=== PATIENT | male | born 1990 | race Hispanic/Latino ===

== ENCOUNTER 2016-10-23 20:42 | Inpatient (IN) | payer SELFPAY ==
[~2016-10-23] VITALS: Ht 165.1 cm; Wt 67.1 kg
[~2016-10-23 20:42] MED LIST: TYLENOL REGULA325 MG PO
[2016-10-23 23:16] LABS: MCH 26.1 PG (29.0-34.0); MEAN PLAT.VOLUME 8.9 uM^3 (9.0-12.4); PLATELET COUNT 445 K/uL (156-360); RBC DIS.WIDTH-CV 14.5 % (11.8-14.6); RBC DIS.WIDTH-SD 41.4 % (39-53); RED BLOOD COUNT 5.82 M/uL (4.00-5.50); WHITE BLOOD COUNT 18.4 K/uL (4.1-10.2)
[2016-10-23 23:26] LABS: CHLORIDE 107 mEq/L (99-109); POTASSIUM 3.6 mEq/L (3.7-5.4); SODIUM 142 mEq/L (136-147)
[2016-10-23 23:28] LABS: GLUCOSE 101 mg/dL (70-99)
[2016-10-23 23:29] LABS: ANION GAP 14 MEQ/L (2-14)
[2016-10-23 23:31] LABS: SERUM ETHYL ALCOHOL 117 mg/dL
[2016-10-23 23:32] LABS: GFR ESTIMATE (CALCULATED) > 59 mL/min/
[2016-10-23 23:33] LABS: UREA NITROGEN (BUN) 7 mg/dL (9-23)
[2016-10-24 01:51] LABS: MAGNESIUM 2.1 mg/dL (1.3-2.7)
[2016-10-24 01:55] LABS: TOTAL BILIRUBIN 0.2 mg/dL (0.0-1.0)
[2016-10-24 01:56] LABS: ALKALINE PHOSPHATASE 92 IU/L (3-129)
[2016-10-24 01:58] LABS: DIRECT BILIRUBIN 0.1 mg/dL (0.0-0.3)
[2016-10-24 02:05] LABS: CREATINE KINASE 153 IU/L (1-294)
[2016-10-24 04:39] VITALS: BP 146/71
[2016-10-24 06:34] LABS: ADD MIUA? NO; BILIRUBIN NEGATIVE; BLOOD NEGATIVE; COLOR YELLOW ((YELLOW)); GLUCOSE (STRIP) NEGATIVE; KETONES NEGATIVE; LEUKOCYTES NEGATIVE; NITRITE NEGATIVE; PROTEIN (STRIP) NEGATIVE; UCUL ADDED? NO; UROBILINOGEN 0.2 MG/DL (0.2-1.0)
[2016-10-24 07:51] LABS: INTERNAL CONTROL VALID? YES
[2016-10-24 08:10] VITALS: BP 141/71
[2016-10-24 08:30] LABS: EOSINOPHIL (%) 0.7 % (0-5); EOSINOPHIL COUNT 0.1 K/uL (0-0.3); HEMATOCRIT 42.3 % (38.0-50.0); IMMATURE GRANULOCYTE (%) 0.3 % (0.0-0.7); INSTRUMENT ABS NEUTROPHIL CT 9.6 K/uL; LYMPHOCYTE COUNT 1.9 K/uL (1.0-2.8); MCH 26.7 PG (29.0-34.0); MCHC 33.3 G/DL (30.0-36.0); MEAN PLAT.VOLUME 9.1 uM^3 (9.0-12.4); MONOCYTE (%) 7.2 % (3-12); MONOCYTE COUNT 0.9 K/uL (0-0.8); NEUTROPHIL (%) 76.6 % (45-76); NEUTROPHIL COUNT 9.6 K/uL (1.8-6.4); PLATELET COUNT 391 K/uL (156-360); RBC DIS.WIDTH-CV 14.6 % (11.8-14.6); RBC DIS.WIDTH-SD 42.5 % (39-53); RED BLOOD COUNT 5.29 M/uL (4.00-5.50); WHITE BLOOD COUNT 12.6 K/uL (4.1-10.2)
[2016-10-24 08:51] LABS: ANION GAP 8 MEQ/L (2-14); CHLORIDE 107 MEQ/L (99-109); GFR ESTIMATE (CALCULATED) > 59 mL/min/; GLUCOSE 97 mg/dL (70-99); POTASSIUM 4.1 MEQ/L (3.7-5.4); SAMPLE HEMOLYSIS CHECK 0; SAMPLE ICTERIC CHECK 0; SAMPLE LIPEMIA CHECK 0; SODIUM 139 MEQ/L (136-147); UREA NITROGEN (BUN) 5 mg/dL (9-23)
[2016-10-24 12:00] VITALS: BP 135/73
[2016-10-24 16:12] VITALS: BP 139/79
[2016-10-25 00:43] VITALS: BP 130/80
[2016-10-25 07:49] VITALS: BP 134/82
[2016-10-25 16:08] VITALS: BP 132/80
[2016-10-26] VITALS: BP 126/78
[2016-10-26 00:37] LABS: QGTB-NIL 0.09 IU/mL (()); TB AG-NIL 6.34 IU/mL (())
[2016-10-26 07:59] VITALS: BP 140/62
[2016-10-26 15:37] VITALS: BP 126/68
[2016-10-27 05:57] LABS: PROTHROMBIN TIME 10.3 (9.2-11.2); PTT 28.9 (25-32)
[2016-10-27 08:37] VITALS: BP 122/86
[2016-10-27 18:41] VITALS: BP 120/60
[2016-10-27 19:50] VITALS: BP 123/62
[2016-10-27 23:45] VITALS: BP 141/77
[2016-10-28 09:46] VITALS: BP 121/64
[2016-10-28 13:03] VITALS: BP 109/70
[2016-10-28 16:00] VITALS: BP 120/69
[2016-10-28 19:02] VITALS: BP 110/74
[2016-10-29 07:30] VITALS: BP 131/64
[2016-10-30 00:01] VITALS: BP 121/70
[2016-10-30 07:49] VITALS: BP 110/60
[2016-10-30 15:25] VITALS: BP 120/60
[2016-10-31 00:10] VITALS: BP 130/90
[2016-10-31 08:09] VITALS: BP 135/84
[2016-10-31 14:38] LABS: HEMATOCRIT 45.6 % (38.0-50.0); MCH 26.2 PG (29.0-34.0); MCHC 32.9 G/DL (30.0-36.0); MCV 79.7 FL (86-99); MEAN PLAT.VOLUME 9.3 uM^3 (9.0-12.4); PLATELET COUNT 411 K/uL (156-360); RBC DIS.WIDTH-CV 13.9 % (11.8-14.6); RBC DIS.WIDTH-SD 40.3 % (39-53); RED BLOOD COUNT 5.72 M/uL (4.00-5.50); WHITE BLOOD COUNT 7.9 K/uL (4.1-10.2)
[2016-10-31 14:59] LABS: ANION GAP 10 MEQ/L (2-14); CHLORIDE 102 MEQ/L (99-109); POTASSIUM 3.8 MEQ/L (3.7-5.4); SAMPLE HEMOLYSIS CHECK 0; SAMPLE ICTERIC CHECK 0; SAMPLE LIPEMIA CHECK 0; SODIUM 137 MEQ/L (136-147)
[2016-10-31 15:04] LABS: GFR ESTIMATE (CALCULATED) > 59 mL/min/; GLUCOSE 135 mg/dL (70-99); UREA NITROGEN (BUN) 11 mg/dL (9-23)
[2016-10-31 15:05] VITALS: BP 142/86
[2016-10-31 16:51] LABS: HIV INDEX 0.11; HIV-1/2 AB/AG COMBO Nonreactive
[2016-11-01] VITALS: BP 118/70
[2016-11-01 07:51] VITALS: BP 118/70
[2016-11-01 15:14] VITALS: BP 110/74
[2016-11-01 23:55] VITALS: BP 110/54
[2016-11-02 08:04] VITALS: BP 120/78
[2016-11-02 15:49] VITALS: BP 140/84
[2016-11-02 23:48] VITALS: BP 110/74
[2016-11-03 07:39] VITALS: BP 133/69
[2016-11-03 14:17] VITALS: BP 124/64
[2016-11-03 23:36] VITALS: BP 122/71
[2016-11-04 07:49] VITALS: BP 127/78
[2016-11-04 08:11] LABS: HEMATOCRIT 46.8 % (38.0-50.0); MCH 26.1 PG (29.0-34.0); MCHC 32.9 G/DL (30.0-36.0); MCV 79.5 FL (86-99); MEAN PLAT.VOLUME 8.9 uM^3 (9.0-12.4); PLATELET COUNT 458 K/uL (156-360); RBC DIS.WIDTH-CV 13.9 % (11.8-14.6); RBC DIS.WIDTH-SD 40.2 % (39-53); RED BLOOD COUNT 5.89 M/uL (4.00-5.50); WHITE BLOOD COUNT 6.5 K/uL (4.1-10.2)
[2016-11-04 11:23] VITALS: BP 137/68
[2016-11-04 16:04] VITALS: BP 124/74
[2016-11-05 00:16] VITALS: BP 133/71
[2016-11-05 11:49] VITALS: BP 152/78
[2016-11-05 12:38] LABS: TOTAL BILIRUBIN 0.5 mg/dL (0.0-1.0)
[2016-11-05 12:39] LABS: ALKALINE PHOSPHATASE 92 IU/L (3-129)
[2016-11-05 12:41] LABS: DIRECT BILIRUBIN 0.2 mg/dL (0.0-0.3)
== END 2016-11-05 14:38 | disposition home or self-care (01) | DRG 177 ==
LOC: EME 20:42 → EDBD 20:42 → TRA 20:42 → 5SOUTH 10-24 00:46 → EDOF 10-24 00:46 → 5SOUTH 10-24 03:27
PROVIDERS: Emergency Medicine; Hospitalist; Internal Medicine Pulmonary Disease; Nurse Practitioner Adult Health
PROC: 0HQ1XZZ Repair Face Skin, External Approach (ICD-10-PCS; principal; 2016-10-24)
PROC: 0BJ08ZZ Inspection of Tracheobronchial Tree, Via Natural or Artificial Opening Endoscopic (ICD-10-PCS; 2016-10-29)
DX: A15.0 Tuberculosis of lung (principal); R40.20 Unspecified coma; A31.9 Mycobacterial infection, unspecified; E87.6 Hypokalemia; S01.81XA Laceration without foreign body of other part of head, initial encounter; E86.0 Dehydration; F03.90 Unspecified dementia, unspecified severity, without behavioral disturbance, psychotic disturbance, mood disturbance, and anxiety; F10.239 Alcohol dependence with withdrawal, unspecified; V13.4XXA Pedal cycle driver injured in collision with car, pick-up truck or van in traffic accident, initial encounter; Y90.5 Blood alcohol level of 100-119 mg/100 ml; Y93.55 Activity, bike riding; Z86.11 Personal history of tuberculosis; Z87.891 Personal history of nicotine dependence
CPT/HCPCS: 70450; 71010; 71250; 72125; 73610; 73630; 74176; 80048; 80076; 81003; 82550; 83605; 83735; 84550; 85025; 85027; 85610; 85730; 86480 90; 86703; 87040; 87070; 87116; 87205; 87206; 87449; 88108; 88312; 99202; 99281; 99285; G0480; J0456; J0461; J0696; J1644; J2175; J2250; J2550; J3010; J3411; J7030; J7050; S0030